=== PATIENT | female | born 1970 | race Caucasian/White ===

== ENCOUNTER 2018-05-10 17:56 | Emergency (ER) | payer OTHER ==
[2018-05-10 18:05] VITALS: BP 141/63; PULSE 79; TEMP 98.1; BMI 25.0
[2018-05-10] MEDS ORDERED: CLINDAMYCIN HCL 300 MG CAPSULE PO ONE (20:20)
[2018-05-10] MEDS ORDERED: CLINDAMYCIN HCL 150 MG CAPSULE (FP) ONE (20:21)
--- NOTE | 2018-05-10 20:23 | PDOC ---
History of Present Illness - General History Source: Patient Exam Limitations: No Limitations - History of Present Illness Initial Comments: 05/10/18 20:48 The patient is a 47-year-old female with no significant past medical history presents to the emergency department with pain to the 2nd toe. The patient reports she was away on a business trip, when she suffered a mechanical fall after tripping over her luggage, reports an injury to the head and R. foot, denies LOC. The patient states following up at a nearby ER, where an X-ray of the foot was obtained that showed minor R. greater toe fracture, no injury to the rest of the toes. The patient states earlier today she noticed a mild blister to the medial portion of the 2nd toe, states she placed a corn patch to the area. The patient reports as the day progressed the pain became worse when she took off the patch she noticed an increase in the size of the blister with non-draining purulent central area. Allergies: NKDA Social history: The patient denies the use of cigarettes. Denies the use of alcohol. Denies the use of recreational drugs. PCP: None reported. <Daija Angel - Last Filed: 05/10/18 22:08> <Evelin Hatch - Last Filed: 05/11/18 01:29> - General Chief Complaint: Pain Stated Complaint: RT 2ND TOE BLISTER/WART? Time Seen by Provider: 05/10/18 19:13 Past History <Daija Angel - Last Filed: 05/10/18 22:08> - Past Medical History COPD: No - Immunization History Immunization Up to Date: Yes - Suicide/Smoking/Psychosocial Hx Smoking Status: No Smoking History: Never smoked Have you smoked in the past 12 months: No Number of Cigarettes Smoked Daily: 0 Information on smoking cessation initiated: No Hx Alcohol Use: No Drug/Substance Use Hx: No Substance Use Type: None <Evelin Hatch - Last Filed: 05/11/18 01:29> - Past Medical History Allergies/Adverse Reactions: Allergies Allergy/AdvReac Type Severity Reaction Status Date / Time No Known Allergies Allergy Unverified 10/18/12 20:38 Home Medications: Ambulatory Orders Bupropion HCl [Wellbutrin -] 300 mg PO DAILY 05/10/18 Clindamycin HCl 150 mg PO TID #15 capsule 05/10/18 Clindamycin HCl 150 mg PO TID #15 capsule 05/10/18 Review of Systems - Review of Systems Comments:: 05/10/18 20:44 CONSTITUTIONAL: Absent: fever, no chills, no fatigue MUSKULOSKELETAL: (+) R. 2nd toe blister with pain. No drainage. Absent: back pain, no arthralgia, no myalgia SKIN: Absent: rash <Daija Angel - Last Filed: 05/10/18 22:08> *Physical Exam - Vital Signs Last Vital Signs Temp Pulse Resp BP Pulse Ox 98.1 F 79 20 141/63 100 05/10/18 17:56 05/10/18 17:56 05/10/18 17:56 05/10/18 17:56 05/10/18 17:56 - Physical Exam Comments: 05/10/18 20:43 GENERAL: The patient is awake, alert, and fully oriented, in no acute distress. EXTREMITIES: (+) R. foot: 2nd toe 1x1 cm vesicle to the medial portion of the phalanx with surrounding 2cm erythema. No fluctuance or drainage on palpation. No pain on passive or active movement. No lymphatic streaking. Toe nail normal. Superficial healing laceration of the mid-distal phalanx of the great toe. Rest of the extremity: Normal range of motion, no edema. No clubbing or cyanosis. No cords, erythema, or tenderness. SKIN: Warm, Dry, normal turgor, no rashes or lesions noted. <Daija Angel - Last Filed: 05/10/18 22:08> - Vital Signs Last Vital Signs Temp Pulse Resp BP Pulse Ox 98.1 F 79 20 141/63 100 05/10/18 17:56 05/10/18 17:56 05/10/18 17:56 05/10/18 17:56 05/10/18 17:56 <Evelin Hatch - Last Filed: 05/11/18 01:29> ED Treatment Course - Medications Given in the ED: ED Medications Discontinued Medications Generic Name Dose Route Start Last Admin Trade Name Freq PRN Reason Stop Dose Admin Clindamycin HCl 300 mg 05/10/18 20:20 05/10/18 20:22 Cleocin - PO 05/10/18 20:21 300 mg ONCE ONE Administration <Daija Angel - Last Filed: 05/10/18 22:08> Progress Note - Progress Note Progress Note: Documentation has been prepared under my direction and personally reviewed by me in its entirety. I attest that this documented accurately reflects all work, treatment, procedures and medical decision making performed by me. <Evelin Hatch - Last Filed: 05/11/18 01:29> Medical Decision Making - Medical Decision Making As noted above, this 47-year-old woman noted painful, blistered area of the right second toe today. Patient had sustained an injury to the right great toe yesterday after a fall; patient thinks she may have immobilized the area too tightly. No direct injury to the second toe had been sustained. Exam as noted. Since there was area of central purulence with surrounding vesicle, surrounded by tender, erythematous, edematous soft tissue, presentation most consistent with infected blister (possible secondary to direct pressure). Under sterile technique, Hibiclens/ethanol solution used for cleansing of skin. #11 blade used to make a small incision in the center of the vesicle and fluid (mainly clear) trained. Sample sent for culture and sensitivity. Wound was thoroughly irrigated using 30 mL of sterile normal saline. There was no significant cavity to pack and no bleeding/further purulent drainage present. Wound was covered with dry sterile dressing. Because of the significant tenderness and erythema/edema of the area, the wound was treated as an early cellulitis. Patient given a loading dose of clindamycin 300 mg by mouth here and prescription for clindamycin 150 mg 3 times a day for 5 days will be sent to her pharmacy. Patient states that she will be traveling by air to [place] tomorrow for a few day trip. Patient has been advised to elevate her right foot as much as possible over the next 24-48 hours. <Evelin Hatch - Last Filed: 05/11/18 01:29> *DC/Admit/Observation/Transfer <Daija Angel - Last Filed: 05/10/18 22:08> <Evelin Hatch - Last Filed: 05/11/18 01:29> Diagnosis at time of Disposition: Infected blister of right foot or toe - Discharge Dispostion Disposition: HOME - Prescriptions Prescriptions: Clindamycin HCl 150 mg PO TID #15 capsule Clindamycin HCl 150 mg PO TID #15 capsule - Patient Instructions Printed Discharge Instructions: DI for Cellulitis -- Adult Additional Instructions: Protective dressing to wound for the next 3 days Elevate right foot as much as possible the next 48 hours Clindamycin 150 mg 3 times a day for 5 days Return or see nearest medical facility if area becomes more painful/red/swollen Ibuprofen/naproxen/acetaminophen as needed for pain Follow-up with your primary doctor within the next 5 days
== END 2018-05-10 20:26 | disposition home or self-care (01) ==
LOC: FER 17:56
PROC: 0H9MXZZ Drainage of Right Foot Skin, External Approach (ICD-10-PCS; principal; 2018-05-10)
DX: S90.424A Blister (nonthermal), right lesser toe(s), initial encounter (principal)
CPT/HCPCS: 87070; 87205; 99282-25

== ENCOUNTER 2019-05-05 09:10 | Emergency (ER) | payer SELFPAY ==
--- NOTE | 2019-05-05 09:16 | PDOC ---
History of Present Illness - General Chief Complaint: Nausea Stated Complaint: NAUSEA Time Seen by Provider: 05/05/19 09:14 - History of Present Illness Initial Comments: 05/05/19 12:34 Chief complaint: Nausea, anxiety History of present illness: There has been intermittent nausea and diarrhea for several days. Nausea persists, one episode of diarrhea today. The patient complains of increased anxiety and paranoia, which she has experienced for many years and thought to be the result of PTSD. Prior alcohol problem, but has not consumed alcohol for some time. Only hospitalization has been for alcohol detox. No psychiatric admissions. No suicidal or homicidal ideations or attempts. Systems: Denies fevers/chills, URI symptoms, sore throat, cough, chest pain, shortness of breath, hematemesis, melena, bloody stool, vaginal bleeding or discharge, urinary tract symptoms including dysuria or hematuria, depression, or thoughts of harming herself or others. Remainder of systems reviewed and found to be negative. Past medical history: PTSD, anxiety, paranoia. Medications include Seroquel, Xanax, gabapentin, Benadryl, Zofran. Social history: Lives with her son, who just graduated from high school and is going away to college in June. She admits that this makes her feel anxious. Prior alcoholism, detoxed with rehabilitation, alcohol free for several years. Admits using marijuana but no other nonprescription drugs. Family history: Reviewed and noncontributory Physical exam: Alert and oriented well-developed well-nourished mildly anxious, hyperventilating. However, does not appear in any physical distress. She is cooperative Afebrile, vital signs normal PERRLA 3 mm, fundi benign, ENT clear Neck supple without bruit mass or nodes Chest clear with full breath sounds bilaterally CV regular without murmur rub or gallop pulses full and symmetric no JVD or edema no bruits Abdomen nondistended. Bowel sounds normal. Soft without masses tenderness organomegaly. No CVAT Extremities no CCE Neurological C2 to 12 intact. Strength is symmetric. No focal sensory or motor deficits. Cerebellar function intact. Gait stable and unimpaired Skin clear, no rash, adequate turgor and mucous membranes Impression: Anxiety, possible drug abuse. No severe symptoms of depression Plan: CBC, chemistries, urinalysis, anxiolytic, contact patient's psychiatrist for further information. Observe. Past History - Past Medical History Allergies/Adverse Reactions: Allergies Allergy/AdvReac Type Severity Reaction Status Date / Time No Known Allergies Allergy Verified 05/05/19 09:10 Home Medications: Ambulatory Orders Bupropion HCl [Wellbutrin -] 350 mg PO DAILY 05/05/19 Diphenhydramine HCl 25 mg PO ASDIR 05/05/19 Eszopiclone [Lunesta] 6 mg PO DAILY 05/05/19 Gabapentin 400 mg PO BID 05/05/19 Metronidazole 500 mg PO Q6H 05/05/19 Ondansetron HCl [Zofran] 4 mg PO Q8H PRN 05/05/19 Quetiapine Fumarate [Seroquel] 100 mg PO HS 05/05/19 COPD: No - Immunization History Immunization Up to Date: Yes - Suicide/Smoking/Psychosocial Hx Smoking Status: No Smoking History: Never smoked Have you smoked in the past 12 months: No Number of Cigarettes Smoked Daily: 0 Hx Alcohol Use: No Drug/Substance Use Hx: No Substance Use Type: None ED Treatment Course - LABORATORY CBC & Chemistry Diagram: 05/05/19 09:30 05/05/19 09:30 Medical Decision Making - Medical Decision Making 05/05/19 12:29 CBC is normal. Chemistries show minimal elevation of chloride and depression of CO2, probably not of clinical significance Urinalysis with 10-20 white cells but no nitrites or leukocyte esterase. Drug screen is positive for MDMA, marijuana, and benzodiazepines, the patient acknowledging use of marijuana but not MDMA. Patient's psychiatrist Dr. Waller was contacted by phone. She has been following the patient for many years and knows her well. Her diagnosis is PTSD, prior alcohol and drug abuse. She has been hospitalized only for alcohol detox. There is no history of suicidal or homicidal ideations or attempts. No prior psychoses. Psychiatrist does not feel that there is a danger to the patient or others, and she regularly follows up, keeping her appointments, and is scheduled to be seen early next week. Dr. Waller was made aware of the results of the tox screen. Patient appears to be more comfortable, more relaxed and less agitated after administration of Ativan. She is fully ambulatory, there has been no vomiting or diarrhea, and abdomen remained soft and nontender. She is discharged with her son to follow-up with her psychiatrist. She appears in no acute distress at discharge. *DC/Admit/Observation/Transfer Diagnosis at time of Disposition: Drug reaction Qualifiers: Encounter type: initial encounter Qualified Code(s): T50.905A - Adverse effect of unspecified drugs, medicaments and biological substances, initial encounter - Discharge Dispostion Disposition: HOME Condition at time of disposition: Improved Decision to Admit order: No - Referrals - Patient Instructions Additional Instructions: Rest, fluids, good nutrition. Avoid exposure to all drugs except those prescribed. Take prescribed medication as directed. See Dr. Waller your psychiatrist for follow-up as scheduled early next week. - Post Discharge Activity
[2019-05-05] MEDS ORDERED: SODIUM CHLORIDE 1,000 ML IV STA (09:36)
[2019-05-05] MEDS ORDERED: LORazepam 1 MG TABLET PO ONE ×2 (09:37→11:11)
[2019-05-05] MEDS ORDERED: ONDANSETRON 4 MG/2 ML VIAL IVPB ONE (09:37)
[2019-05-05 09:48] LABS: EOS % 1.6 % (0-4.5); HEMOGLOBIN 14.3 GM/dl (10.7-15.3); MCH 31.4 pg (25.7-33.7); MCHC 33.7 g/dl (32.0-36.0); WHITE BLOOD COUNT 9.4 K/mm3 (4.0-10.8)
[2019-05-05] MEDS ORDERED: ONDANSETRON 4 MG/2 ML VIAL ONE (09:50)
[2019-05-05] MEDS ORDERED: LORazepam 0.5 MG TABLET ONE ×2 (09:55→11:14)
[2019-05-05 09:58] LABS: HEMATOCRIT 42.5 % (32.4-45.2); LYMPH % 17.2 % (8-40); MEAN CELL VOLUME 93.2 fl (80-96); MEAN PLT VOLUME 9.8 fl (7.5-11.1); MONO % 5.5 % (3.8-10.2); NEUT % 73.7 % (42.8-82.8); PLATELET COUNT 297 K/MM3 (134-434); RBC 4.56 M/mm3 (3.60-5.2); RDW 13.1 % (11.6-15.6)
[2019-05-05 09:59] VITALS: BP 134/97; PULSE 96; TEMP 98.6; BMI 21.7
[2019-05-05 10:03] LABS: ALBUMIN 4.7 g/dl (3.4-5.0); BILIRUBIN,TOTAL 0.9 mg/dl (0.2-1); CALCIUM 9.4 mg/dl (8.5-10); CREATININE 0.8 mg/dl (0.55-1.3); POTASSIUM 3.7 mmol/L (3.5-5.1); TOT PROT 7.6 g/dl (6.4-8.2)
[2019-05-05 10:35] LABS: EPITHELIAL CELLS MODERATE /hpf
[2019-05-05 11:20] LABS: COCAINE, UR NEGATIVE ng/ml (CUTOFF=300); METHADONE, UR NEGATIVE ng/ml (CUTOFF=300); OPIATES, URI NEGATIVE ng/ml (CUTOFF=300); PHENCYCLIDINE,URINE NEGATIVE ng/ml (CUTOFF=25); URINE AMPHETAMINES NEGATIVE ng/ml (CUTOFF=500); URINE BARBITURATES NEGATIVE ng/ml (CUTOFF=200)
[2019-05-05 11:31] LABS: URINE BENZODIAZEPINES POSITIVE ng/ml (CUTOFF=200)
== END 2019-05-05 12:40 | disposition home or self-care (01) ==
LOC: FER 09:10
PROC: 3E033GC Introduction of Other Therapeutic Substance into Peripheral Vein, Percutaneous Approach (ICD-10-PCS; principal; 2019-05-05)
PROC: 3E0337Z Introduction of Electrolytic and Water Balance Substance into Peripheral Vein, Percutaneous Approach (ICD-10-PCS; 2019-05-05)
DX: R11.0 Nausea (principal); T50.905A Adverse effect of unspecified drugs, medicaments and biological substances, initial encounter; Y93.9 Activity, unspecified; F43.10 Post-traumatic stress disorder, unspecified; F41.8 Other specified anxiety disorders
CPT/HCPCS: 36415; 80053; 80307; 81003; 81015; 82550; 84484; 84703; 85025; 99282-25; G0480; J7030